=== PATIENT | female | born 1980 | race Caucasian/White ===

== ENCOUNTER 2020-06-04 05:34 | Inpatient (IN) ==
--- NOTE | 2020-05-26 13:39 | History and Physical Report ---
DATE OF ADMISSION: 06/04/2020 CHIEF COMPLAINT: Intrauterine [id number] weeks gestation, desire for permanent sterilization, previous . HISTORY OF PRESENT ILLNESS: The patient is a 39-year-old 3, para 2. Her general health is good. This is well dated with a first trimester ultrasound. Her due date is 06/09/2020. She has had an uneventful course. She had a previous for breech presentation. Her obstetrical history is as follows: In 2006, she had a girl, 7 pounds 3 ounces, spontaneous vaginal delivery at 41 weeks. Second in 2009, a boy, 8 pounds 2 ounces, 39 weeks, primary for breech. She has been followed for care in our office. She does have a vertex presentation. She has been given the options of having a vaginal after section or repeat . Due to the fact that this is going to be her last and she request sterilization, she has opted for repeat low segment section and bilateral tubal ligation. She has also been counseled as to the nature of the procedure of tubal ligation including the fact that this procedure is intended to result in permanent irreversible sterility that there can be failures of the procedure resulting in ectopic . PAST MEDICAL HISTORY: She has got 1 boy and 1 girl in good health. Medical history: No history of rheumatic fever, heart disease, heart murmur, diabetes, tuberculosis. ALLERGIES: She has no known drug allergies. PAST SURGICAL HISTORY: Her only surgery is . SOCIAL HISTORY: No smoking, no alcohol intake. Works at the [employer]. FAMILY HISTORY: Mom is 57 in good health. Father 65 in good health. She has got 1 younger brother and 1 younger sister in good health. REVIEW OF SYSTEMS: HEAD: No symptoms of frequent or severe headaches. EYES: No symptoms of blurred vision, double vision. EARS: No symptoms of frequent ear infections, difficulty hearing. NOSE: No symptoms of frequent nosebleeds, difficulty breathing through her nose. THROAT: No symptoms of frequent or severe sore throat, difficulty swallowing. RESPIRATORY SYSTEM: No history of asthma, chest pain, shortness of breath. PHYSICAL EXAMINATION: GENERAL: Well-developed, well-nourished 39-year-old white female, alert, oriented x3 and cooperative, no acute distress, appeared her stated age. EYES: Conjunctivae are pink. Sclerae white, no evidence of jaundice. EARS: Had normal light reflex bilaterally. NOSE: Had normal mucosa. Septum is midline. There were no polyps. THROAT: No erythema or evidence of infection. MOUTH: Teeth are in good state of repair. HEAD: Normocephalic, normal distribution of hair. NECK: Supple. Trachea midline. Thyroid is not enlarged. There is no adenopathy appreciated. Both carotids are of good intensity. CHEST: Clear to auscultation and percussion. No wheezes, rales or rhonchi appreciated. HEART: Had regular rhythm. S1, S2 are normal. BREASTS: Normal. ABDOMEN: Term size fetus, estimated weight over 8 pounds. Well-healed Pfannenstiel scar. PELVIC: Vertex presentation. Cervix posterior, closed. IMPRESSIONS OF THIS CASE: Desire for permanent sterilization, intrauterine , 39_ weeks gestation and previous for breech presentation. MTDD
--- NOTE | 2020-05-28 09:09 | PAT Medication Instructions ---
Medication Instructions Date of Service May 28, 2020 Home Medications Lacto.acidophilus-Bif.animalis [Probiotic] 1 cap PO PM prenat 115-iron mzh-dpgho-thm 1 tab PO QAM DO NOT take the morning of surgery prenat 115-iron vyx-zacdy-tfh 1 tab PO QAM Take evening before surgery Lacto.acidophilus-Bif.animalis [Probiotic] 1 cap PO PM Other Notes If you have any questions please call us at [phone] or [phone] or [phone] or [phone]
--- NOTE | 2020-05-28 14:51 | Anesthesiology Consultation ---
Date of Service May 28, 2020 Assessment & Plan (1) Encounter for pre-operative examination: COVID Status: As of 05/28 assessment, patient denies travel to endemic area, known exposure/sick contacts, or symptoms of COVID19. Patient instructed that they and their household members must follow strict social distancing guidelines, wear a mask in public and avoid travel for 14 days prior to surgery. Preoperative COVID19 testing to be completed prior to surgery per surgeon's arra ngements. Patient made aware to self-isolate as much as possible between COVID testing and surgery. Chart Review Chart Review: Acceptable Risk for Surgery and Patient seen in Pre Admission Testing Teaching & Discussion Instructed NPO after midnight before surgery, except medications with 15 cc of water. Medication instructions provided according to the PAT guidelines. History Surgery Operation Date: 06/04/20 07:30 Proposed Procedures p Section, - Stefano Perales MD s Bilateral Tubal Ligation LD - Stefano Perales MD Height/Weight Height: 5 ft 8 in Weight: 82.3 kg Allergies Allergy/AdvReac Type Severity Reaction Status Date / Time No Known Allergies Allergy Verified 05/27/20 14:27 Medications Home Medications Medication Instructions Recorded Confirmed Last Taken Lacto.acidophilus-Bif.animalis 1 cap PO PM 05/27/20 05/27/20 Unknown [Probiotic] prenat 115-iron pyb-dleqv-nbi 1 tab PO QAM 05/27/20 05/27/20 Unknown Past Medical History Medical History GERD (gastroesophageal reflux disease) RELATED History of anesthesia reaction HAD TO HAVE GENERAL ANESTHESIA LAST BECAUSE COULD FEEL PRESSURE WITH CUTTING. Exercise / Class Metabolic Activity II 4-5 Yardwork/Stairs/Walk up hill Past Surgical History Surgical History History of section X1 History of tooth extraction Past Anesthesia History No Hx of Anesthesia Complications and No Family Hx of Anesthesia Complications History of PONV No Hx of PONV and Hx of Motion Sickness Social History Smoking Status: Never smoker Do You Dip or Chew Tobacco: No Hx Alcohol Use: No Hx Substance Use: No substance use type: does not use Review of Systems Pt denies any recent chest pain, shortness of breath, cough, fever, URI. +reflux, +occ palpitations Physical Exam Vital Signs BP: 103/66 P: 83bpm SPO2: 97% RA T: 98.1 F R: 16 ENMT Mouth: + dental restorations (Upper incisor implant/veneer); no chipped teeth and no loose teeth Thyromental Distance: < 3.5 Finger Breadths (3) Mallampati Class: II Neck normal visual inspection; neck extension not limited Respiratory normal respiratory effort Auscultation: lungs clear to auscultation bilaterally Cardiovascular Rate/Rhythm: regular rate and regular rhythm Heart Sounds: no murmur Testing Laboratory Results 05/28/20 15:00 05/28/20 15:00 PT 10.0 Seconds (9.0-12.0) 05/28/20 15:00 INR 0.9 (0.9-1.1) 05/28/20 15:00 APTT 23.1 Seconds (21.0-31.0) 05/28/20 15:00 Blood Type A Positive 05/28/20 15:00 Antibody Screen NEGATIVE 05/28/20 15:00
[2020-05-28 15:43] LABS: Basophils # (auto) 0.01 K/uL (0-0.2); Basophils % (auto) 0.2 %; Eosinophils # (auto) 0.08 K/uL (0-0.5); Eosinophils % (auto) 1.2 %; Hematocrit (blood only) 32.8 % (37-47); Hemoglobin 11.4 g/dL (12.0-16.0); Immature Granulocytes # (auto) 0.03 K/uL (0.00-0.02); Immature Granulocytes % (auto) 0.5 %; Lymphocytes # (auto) 1.11 K/uL (1.2-3.4); Mean Corpuscular Hemoglobin 33.2 pg (25-34); Mean Corpuscular Hgb Conc 34.8 g/dL (32-36); Mean Corpuscular Volume 95.6 fL (80-100); Mean Platelet Volume 12.5 fL (7.4-10.4); Monocytes # (auto) 0.65 K/uL (0.11-0.59); Monocytes % (auto) 9.9 %; Neutrophils # (auto) 4.66 K/uL (1.4-6.5); Neutrophils % (auto) 71.2 %; Platelet Count 175 K/uL (130-400); RDW Standard Deviation 44.8 fL (36.4-46.3); Red Blood Count 3.43 M/uL (4.2-5.4); White Blood Count 6.54 K/uL (4.8-10.8)
[2020-05-28 15:54] LABS: INR 0.9 (0.9-1.1); Partial Thromboplastin Ratio 0.8; Partial Thromboplastin Time 23.1 Seconds (21.0-31.0)
[2020-05-28 15:59] LABS: BUN Creatinine Ratio 13.8 (10-20); Calcium 8.8 mg/dl (8.5-10.1); Creatinine Clr Calc Pharmacy 154.7 ml/min; Est GFR (African American) 138.1; Est GFR (Non-African American) 119.1; Potassium 3.8 mmol/L (3.5-5.1)
[2020-06-04] MEDS ORDERED: cefOXitin 2,000 MG in DEXTROSE 5% 50 ML IV SCH (06:00)
[2020-06-04] MEDS ORDERED: CITRIC ACID/SODIUM CITRATE 15 ML UDC PO SCH (06:00)
[2020-06-04] MEDS ORDERED: LACTATED RINGER'S 1,000 ML IV SCH ×2 (06:00→09:15)
[2020-06-04 06:10] LABS: Basophils # (auto) 0.01 K/uL (0-0.2); Basophils % (auto) 0.2 %; Eosinophils % (auto) 1.6 %; Hematocrit (blood only) 33.3 % (37-47); Hemoglobin 11.6 g/dL (12.0-16.0); Immature Granulocytes # (auto) 0.02 K/uL (0.00-0.02); Immature Granulocytes % (auto) 0.3 %; Lymphocytes # (auto) 1.25 K/uL (1.2-3.4); Lymphocytes % (auto) 19.7 %; Mean Corpuscular Hemoglobin 32.6 pg (25-34); Mean Corpuscular Volume 93.5 fL (80-100); Monocytes # (auto) 0.88 K/uL (0.11-0.59); Monocytes % (auto) 13.8 %; Neutrophils % (auto) 64.4 %; Platelet Count 167 K/uL (130-400); RDW Coefficient of Variation 12.9 % (11.5-14.5); Red Blood Count 3.56 M/uL (4.2-5.4); White Blood Count 6.36 K/uL (4.8-10.8)
[2020-06-04 06:20] LABS: Mean Corpuscular Hgb Conc 34.8 g/dL (32-36)
[2020-06-04 06:21] LABS: INR 0.9 (0.9-1.1); Partial Thromboplastin Ratio 0.8; Partial Thromboplastin Time 23.1 Seconds (21.0-31.0); Prothrombin Time 9.9 Seconds (9.0-12.0)
[2020-06-04 06:48] LABS: BUN Creatinine Ratio 16.3 (10-20); Calcium 8.9 mg/dl (8.5-10.1); Creatinine Clr Calc Pharmacy 167.3 ml/min; Est GFR (African American) 141.5; Est GFR (Non-African American) 122.1; Potassium 3.6 mmol/L (3.5-5.1)
[2020-06-04] MEDS ORDERED: LIDOCAINE/EPINEPHRINE 1% 20 ML VIAL ONE (07:27)
[2020-06-04] MEDS ORDERED: ePHEDrine sulfate 50 MG/ML AMP IV PRN (07:30)
[2020-06-04] MEDS ORDERED: METOCLOPRAMIDE HCL 10 MG in SODIUM CHLORIDE 0.9% 50 ML IV PRN (07:30)
[2020-06-04] MEDS ORDERED: DiphenhydrAMINE HCL 50 MG/ML VIAL IV PRN (07:30)
[2020-06-04] MEDS ORDERED: PROMETHAZINE HCL 25 MG in SODIUM CHLORIDE 0.9% 50 ML IV PRN (07:30)
[2020-06-04] MEDS ORDERED: NALOXONE HCL 0.4 MG/1 ML VIAL/CARP IV PRN (07:30)
[2020-06-04] MEDS ORDERED: HYDROmorphone INJ 0.5 MG/0.5 ML SYR IV PRN (07:30)
[2020-06-04] MEDS ORDERED: MoRPHine SULFATE PF 1 MG/ML 10 ML AMP/VIAL INT SPINAL ONE (07:30)
[2020-06-04] MEDS ORDERED: SODIUM CHLORIDE 0.9% 1000ML 1,000 ML IV SCH (07:30)
[2020-06-04] MEDS ORDERED: NALOXONE HCL 1 MG in SODIUM CHLORIDE 0.9% 1000ML 1,000 ML IV PRN (07:30)
[2020-06-04] MEDS ORDERED: DC INTRASPINAL MORPHINE SCH (07:30)
[2020-06-04] MEDS ORDERED: MoRPHine SULFATE 2 MG/ML CARP IV PRN (07:30)
[2020-06-04] MEDS ORDERED: NO NARCOTICS OR SEDATIVES SCH (07:30)
[2020-06-04] MEDS ORDERED: NALOXONE HCL 0.08 MG in SYRINGE 1.8 ML IV PRN (07:30)
[2020-06-04] MEDS ORDERED: KETOROLAC 30 MG/ML VIAL IV PRN (07:30)
[2020-06-04] MEDS ORDERED: LACTATED RINGER'S 500 ML IV PRN (07:30)
[2020-06-04] MEDS ORDERED: ONDANSETRON INJ 2 MG/ML 2 ML VIAL IV PRN (07:30)
[2020-06-04] MEDS ORDERED: MEPERIDINE HCL 25 MG/ML CARP/VIAL IV PRN (07:30)
[2020-06-04] MEDS ORDERED: MoRPHine SULFATE PF 1 MG/ML 10 ML AMP/VIAL ONE (07:43)
[2020-06-04] MEDS ORDERED: OXYTOCIN 10 UNITS/ML VIAL IM ONE (08:18)
[2020-06-04] MEDS ORDERED: fentaNYL citrate 100 MCG/2 ML VIAL ONE ×2 (08:18→08:46)
[2020-06-04] MEDS ORDERED: PHENYLEPHRINE 100MCG/ML 5ML SYR ONE (08:47)
[2020-06-04] MEDS ORDERED: OXYTOCIN 10 UNITS/ML VIAL ONE (08:47)
[2020-06-04] MEDS ORDERED: ePHEDrine sulfate 50 MG/ML AMP ONE (08:47)
[2020-06-04] MEDS ORDERED: KETOROLAC 30 MG/ML VIAL ONE (08:51)
[2020-06-04] MEDS ORDERED: DIPHTHERIA/TETANUS/PERTUSSIS 0.5 ML SYR/VIAL IM ONE (09:14)
[2020-06-04] MEDS ORDERED: SUPERCREAM 0.870% 15 GM JAR EXT PRN (09:14)
[2020-06-04] MEDS ORDERED: MAGNESIUM HYDROXIDE SUSP 30 ML UDC PO PRN (09:14)
[2020-06-04] MEDS ORDERED: BENZOCAINE 20% AER SPR 82.5 GM CAN EXT PRN (09:14)
[2020-06-04] MEDS ORDERED: SENNA 8.6 MG TAB PO PRN (09:14)
[2020-06-04] MEDS ORDERED: HYDROCORTISONE ACETATE 25 MG SUPP PR PRN (09:14)
--- NOTE | 2020-06-04 09:14 | Post Operative Brief Note ---
Immediate Post Op Note v1 Date of Surgery June 04, 2020 Pre & Post Diagnosis Operation Date: 06/04/20 07:30 Pre-Op Diagnosis: 1. Previous 2. Desire for permanent sterilization Post-Op Diagnosis: Same I identified the patient and participated in the time-out.: Yes Procedure Operation Date: 06/04/20 07:30 Actual Procedures p Section in LD; Repeat Lower Uterine Transverse for the of a live girl at 0815. Bilateral Tubal Ligation.(Bilateral) - Stefano Perales MD Surgeon Stefano Perales MD Hole Puncher Strap Dr Block Estimated Blood Loss 600 Findings Consistent with Post-Op Diagnosis Specimens placenta portion of both fallopian tubes Drains Marquis Catheter (Marquis catheter inserted without difficulty. Patent and draining clear yellow urine. Emptied by Dr. Mccloud for 600ml) Anesthesia Type MAC Spinal Regional Complications none Disposition Accompanied Patient To Recovery: No Disposition: Recovery Room
--- NOTE | 2020-06-04 10:32 | Operative Report (OR) ---
DATE OF OPERATION: 06/04/2020 PROCEDURE: Repeat low segment section, bilateral tubal ligation. INDICATION FOR SURGERY: Previous section, desire for permanent sterilization. PREOPERATIVE DIAGNOSES: Intrauterine 39 weeks 2 days, desire for permanent sterilization. POSTOPERATIVE DIAGNOSES: Intrauterine 39 weeks 2 days, desire for permanent sterilization, delivered live female infant. SURGEON: Keily Perales MD. MANAGER OF COMPLIANCE: Dr. Block. ESTIMATED BLOOD LOSS: 600 mL. ANESTHESIA: Spinal. OPERATIVE FINDINGS AND PROCEDURE: The patient was brought to the OR table, correctly identified by armband and conversation. Spinal anesthesia was administered. A Marquis catheter was inserted aseptically in the bladder, connected to gravity drainage. Compression stockings were applied. The lower abdomen was painted with an alcohol based sterilizing solution and then draped in the usual sterile fashion. The level of the anesthesia was tested and found to be adequate. Incision was made through a previous scar, was carried down to the anterior fascia by sharp dissection. Hemostasis was secured by electrocauterization. Fascia was incised transversely from the underlying muscle by blunt and sharp dissection. There was a fairly wide separation of the rectus muscle noted at this time. Peritoneum was carefully raised and entered. Lower uterine segment was exposed with a retractor that was placed into the incision. Then an incision was made above the vesicouterine fold. Bladder was undermined bluntly and pushed out of the operative field. Lower uterine segment was scored with a knife and then entered with scissors. Clear amniotic fluid was seen at this time. Also, the was in direct occiput posterior position. A vectis retractor was applied to the head with fundal pressure. The head was delivered without difficulty. The body was delivered without difficulty. Cord was then clamped and cut after the had been suctioned through the mouth and the nose. was attended to by the clinical psychologist who was scrubbed and present at the time of delivery. Cord blood was taken. The placenta was removed manually. Uterus, tubes and ovaries were brought out through the incision. There was an open venous bleeder in the posterior portion of the uterus down by the cervix. We did a dhyudq-nj-kfsji suture of Vicryl to control this. This was successful in controlling the bleeding. Then we did a careful anatomical approximation of the muscular defect in the lower uterine segment. I did a deep suture of heavy chromic, which approximated the muscular layer. Then I did a heavy suture of Vicryl to approximate the fascial layer and I did 3 oihqcf-ia-ivsni sutures on the approximation line to complete the hemostasis. I then used a 3-0 chromic to reapproximate the vesicouterine fold. There was a small bleeder on the uterus and fundus on the right side. I did a smyvkc-hh-btepm suture of 3-0 chromic and then did some hemostatic powder on it. I then proceeded to do bilateral partial salpingectomy by identifying each tube, then tying them off proximally and distally with a plain tie, injecting local with epinephrine in the broad ligament between the 2 sutures, then dissecting the tube out between the broad ligament, excising a portion of it, sending for pathology and then approximating the broad ligament front to back burying the proximal portion of the tube and exteriorizing the distal. This was done for both the right and left fallopian tubes. Hemostasis was excellent. Pelvis was cleansed of all blood clots and debris. Uterus, tubes and ovaries were reinserted into the abdominal cavity. Now careful anatomical approximation of the abdominal wall was performed. Peritoneum was closed with a mattress suture of chromic catgut. Recti muscles were carefully approximated with interrupted uovwhk-yj-gwdkp suture chromic catgut. Fascia was closed with continuous interlocking suture of Vicryl on each side, tied in the midline. SubQ was approximated with a running plain. Skin edges were approximated with staple clips. I attest to the content of the Intraoperative Record and any orders documented therein. Any exception s are noted below.
--- NOTE | 2020-06-04 11:09 | Anesthesiology Progress Note ---
Date of Service June 04, 2020 Anesthesia Post Procedure Vital Signs Vital Signs: Temp Pulse Resp BP Pulse Ox 06/04/20 11:07 80 97 06/04/20 11:03 86 109/64 06/04/20 11:02 82 96 06/04/20 10:57 70 94 06/04/20 10:53 70 103/59 L 06/04/20 10:52 69 94 06/04/20 10:47 74 95 06/04/20 10:43 73 112/66 06/04/20 10:42 73 95 06/04/20 10:37 83 97 06/04/20 10:33 66 107/61 06/04/20 10:32 69 96 06/04/20 10:27 69 96 06/04/20 10:23 70 18 113/63 06/04/20 10:22 70 97 06/04/20 10:17 71 97 06/04/20 10:13 69 113/65 06/04/20 10:12 70 98 06/04/20 10:07 83 99 06/04/20 10:03 73 116/64 06/04/20 10:02 75 97 06/04/20 09:57 76 98 06/04/20 09:53 85 115/65 06/04/20 09:52 84 98 06/04/20 09:47 87 100 06/04/20 09:43 78 122/65 06/04/20 09:42 85 99 06/04/20 09:37 77 99 06/04/20 09:33 85 120/63 06/04/20 09:32 66 99 06/04/20 09:27 72 97 06/04/20 09:23 36.9 C 64 16 116/61 06/04/20 09:22 67 99 06/04/20 05:58 36.7 C 18 06/04/20 05:44 86 113/69 Transfer of Care Handoff Completed per policy Notes Mental Status: alert / awake / arousable and participated in evaluation Patient Amnestic to Procedure: Yes Nausea / Vomiting: adequately controlled Pain: adequately controlled Airway Patency, RR, SpO2: stable & adequate BP & HR: stable & adequate Hydration State: stable & adequate Neuraxial Anesthesia: was administered and sensory block is resolving Anesthetic Complications: no major complications apparent
[2020-06-04] MEDS: OXYTOCIN 20 UNITS in LACTATED RINGER'S 1,000 ML IV SCH ×2 (11:42→19:56)
[2020-06-04] MEDS: SIMETHICONE 80 MG CHEW PO SCH ×3 (14:08→21:01)
[2020-06-04] MEDS: DOCUSATE SODIUM 100 MG CAP PO SCH (21:01)
[2020-06-05] MEDS ORDERED: MEPERIDINE HCL 50 MG/ML CARP IV PRN (01:30)
[2020-06-05] MEDS ORDERED: DiphenhydrAMINE HCL 50 MG/ML VIAL IV PRN (01:30)
[2020-06-05] MEDS ORDERED: KETOROLAC 30 MG/ML VIAL IV PRN (01:30)
[2020-06-05] MEDS ORDERED: ONDANSETRON INJ 2 MG/ML 2 ML VIAL IV PRN (01:30)
[2020-06-05] MEDS ORDERED: ZOLPIDEM TARTRATE 5 MG TAB PO PRN (01:30)
[2020-06-05] MEDS ORDERED: PROMETHAZINE HCL 25 MG in SODIUM CHLORIDE 0.9% 50 ML IV PRN (01:30)
[2020-06-05 05:39] LABS: Basophils # (auto) 0.02 K/uL (0-0.2); Basophils % (auto) 0.2 %; Hematocrit (blood only) 32.3 % (37-47); Hemoglobin 11.2 g/dL (12.0-16.0); Immature Granulocytes # (auto) 0.04 K/uL (0.00-0.02); Immature Granulocytes % (auto) 0.4 %; Lymphocytes # (auto) 0.85 K/uL (1.2-3.4); Lymphocytes % (auto) 8.2 %; Mean Corpuscular Hemoglobin 32.2 pg (25-34); Mean Corpuscular Hgb Conc 34.7 g/dL (32-36); Mean Corpuscular Volume 92.8 fL (80-100); Mean Platelet Volume 11.9 fL (7.4-10.4); Monocytes % (auto) 8.7 %; Neutrophils # (auto) 8.45 K/uL (1.4-6.5); Neutrophils % (auto) 81.5 %; Platelet Count 154 K/uL (130-400); RDW Coefficient of Variation 12.8 % (11.5-14.5); RDW Standard Deviation 43.4 fL (36.4-46.3); Red Blood Count 3.48 M/uL (4.2-5.4); White Blood Count 10.36 K/uL (4.8-10.8)
[2020-06-05] MEDS: FERROUS SULFATE 325 MG TAB PO SCH (09:11)
[2020-06-05] MEDS: DOCUSATE SODIUM 100 MG CAP PO SCH ×2 (09:11→20:37)
[2020-06-05] MEDS: PRENATAL VITAMIN 1 TAB PO SCH (09:11)
[2020-06-05] MEDS: SIMETHICONE 80 MG CHEW PO SCH ×4 (09:12→20:37)
[2020-06-05] MEDS: OXYCODONE/ACETAMINOPHEN 5mg/325mg TAB PO PRN ×3 (10:29→20:37)
[2020-06-05] MEDS: IBUPROFEN 600 MG TAB PO PRN ×3 (10:30→20:37)
--- NOTE | 2020-06-05 10:55 | Obstetrical Progress Note ---
Date of Service June 05, 2020 Assessment & Plan Admission and Anticipated Discharge Date Admission Date: June 04, 2020 Physical Exam Physical Exam: abdomen soft and non tender bowel sounds are normal no calf tenderness ambulating well vaginal bleeding scant hgb 11.2 Results & Data ([facility]) Vital Signs (Past 12 Hours) Vital Signs Temp Pulse Pulse Resp BP BP Pulse Ox 06/05/20 08:00 36.9 C 70 18 107/65 98 06/05/20 03:15 36.8 C 67 18 104/62 98 06/05/20 01:45 17 96 06/05/20 00:55 17 96 06/04/20 23:55 36.5 C 62 18 101/61 98 06/04/20 23:20 17 99
[2020-06-05] MEDS ORDERED: bisacodyL 5 MG TABEC PO SCH (20:00)
[2020-06-06] MEDS: OXYCODONE/ACETAMINOPHEN 5mg/325mg TAB PO PRN (01:12)
[2020-06-06] MEDS: IBUPROFEN 600 MG TAB PO PRN ×5 (01:12→23:48)
[2020-06-06 06:38] LABS: Hemoglobin 10.7 g/dL (12.0-16.0)
[2020-06-06] MEDS: PRENATAL VITAMIN 1 TAB PO SCH (08:14)
[2020-06-06] MEDS: FERROUS SULFATE 325 MG TAB PO SCH (08:14)
[2020-06-06] MEDS: SIMETHICONE 80 MG CHEW PO SCH ×4 (08:14→20:09)
[2020-06-06] MEDS: DOCUSATE SODIUM 100 MG CAP PO SCH ×2 (08:14→20:09)
[2020-06-06] MEDS ORDERED: bisacodyL 10 MG SUPP PR PRN (09:14)
--- NOTE | 2020-06-06 11:29 | Obstetrical Progress Note ---
Date of Service June 06, 2020 Assessment & Plan Admission and Anticipated Discharge Date Admission Date: June 04, 2020 Physical Exam Physical Exam: abdomen soft and non tender incision is clean and dry passing flatus no calf tenderness ambulating well vaginal bleeding scant hgb 10.7 Results & Data ([facility]) Vital Signs (Past 12 Hours) Vital Signs Temp Pulse Resp BP Pulse Ox 06/06/20 08:00 36.8 C 65 20 96/57 L 98 06/06/20 00:15 36.8 C 65 18 95/52 L 97
[2020-06-07] MEDS: IBUPROFEN 600 MG TAB PO PRN ×2 (06:38→11:32)
[2020-06-07] MEDS: FERROUS SULFATE 325 MG TAB PO SCH (08:18)
[2020-06-07] MEDS: DOCUSATE SODIUM 100 MG CAP PO SCH (08:18)
[2020-06-07] MEDS: PRENATAL VITAMIN 1 TAB PO SCH (08:19)
[2020-06-07] MEDS: SIMETHICONE 80 MG CHEW PO SCH (08:19)
--- NOTE | 2020-06-07 09:50 | Obstetrical Progress Note ---
Date of Service June 07, 2020 Assessment & Plan Admission and Anticipated Discharge Date Admission Date: June 04, 2020 Physical Exam Physical Exam: abdomen soft and non tender incision is clean and dry no calf tenderness ambulating well vaginal bleeding scant hgb 10.7 Results & Data ([facility]) Vital Signs (Past 12 Hours) Vital Signs Temp Pulse Resp BP Pulse Ox 06/07/20 07:55 36.4 C L 56 L 18 99/59 L 97 06/06/20 23:45 36.6 C 59 L 18 111/67
--- NOTE | 2020-06-07 10:29 | Discharge Summary (DS) ---
The patient is a 3, para 3, blood type is A positive, due date is 06/09/2020, was brought in at 39 plus weeks gestation for repeat section. She had a previous for breech. She also requested permanent sterilization. On the day of admission, she was taken to the OR, given prophylactic antibiotics. She underwent repeat low segment section along with a bilateral partial salpingectomy. Her preoperative hemoglobin was 11.6. Postoperatively, hemoglobin fell to 10.7. Postoperatively, she did well. Her bowel sounds returned in under 24 hours. By the time of discharge, she was ambulating well, eating well, pain was well controlled with Motrin and some small amount of Percocet on top of that. She was doing well . She remained afebrile throughout her total postoperative course. She was given the usual instructions to call the office. She had temperature over 100 or any heavy bleeding and was discharged with prescriptions for Percocet and Motrin. She was also told to come in the office in about 10 days for removal of jose.
== END 2020-06-07 11:45 | disposition home or self-care (01) | DRG 785 ==
LOC: 4S1 05:34 → EDSTATUS 07:30 → 4S2 12:26
PROC: M.PPTLD (2020-06-04 07:30)